=== PATIENT | male | born 1980 | race Two or more races ===

== ENCOUNTER 2020-08-23 13:37 | Outpatient (REF) | payer OTHER, SELFPAY ==
[2020-08-24 22:14] LABS: Rubella IgG Antibody 2.53 Index
[2020-08-25 08:01] LABS: ~Hepatitis B Surface Antibody REACTIVE (Nonreactive)
== END 2020-08-23 13:38 | disposition home or self-care (01) ==
LOC: HO.HMGCLDS 13:37
PROVIDERS: PCP Nurse Practitioner Family; Visit Provider Preventive Medicine Occupational Medicine
DX: Z01.84 Encounter for antibody response examination (principal); Z11.59 Encounter for screening for other viral diseases
CPT/HCPCS: 86706; 86735; 86762; 86765; 86787

== ENCOUNTER 2020-08-30 09:07 | Outpatient (REF) | payer OTHER, SELFPAY ==
[2020-09-01 20:57] LABS: TS Negative Control Passed; TS Panel A 0; TS Panel B 0; TS Positive Control Passed; TSpotTB Negative (SeeBelow)
== END 2020-08-30 09:08 | disposition home or self-care (01) ==
LOC: HO.HMGCLDS 09:07
PROVIDERS: Visit Provider Nurse Practitioner Family
DX: Z11.1 Encounter for screening for respiratory tuberculosis (principal)
CPT/HCPCS: 86481

== ENCOUNTER 2020-12-27 11:05 | Outpatient (REF) | payer OTHER, SELFPAY ==
--- NOTE | ~2020-12-27 | XR_ITS ---
EXAMINATION: XR SHOULDER, RIGHT CLINICAL INFORMATION: Right shoulder pain. COMPARISON: None TECHNIQUE: AP external rotation, Grashey, scapular Y, and axillary views of the right shoulder. FINDINGS: The bones and soft tissues are normal. No fracture. Glenohumeral and acromioclavicular alignment is anatomic with normal joint space. No abnormal soft tissue calcifications. XR/XR shoulder RT min 2V IMPRESSION: Unremarkable examination.
[2020-12-27 14:48] LABS: Alanine Aminotransferase 29 U/L (0-40); Albumin Level 4.4 g/dL (3.5-5.0); Alkaline Phosphatase 76 U/L (39-117); Anion Gap 13 (12-20); Aspartate Amino Transferase 26 U/L (5-37); Bilirubin Total 0.7 mg/dL (0.0-1.0); Blood Urea Nitrogen 13 mg/dL (9-16); Carbon Dioxide 27 mmol/L (22-29); Chloride 105 mmol/L (96-108); Cholesterol 148 mg/dL; Estimated Glomerular Filt Rate > 60; Glucose Fasting 94 mg/dL (60-99); HDL Cholesterol 35 mg/dL; LDL Cholesterol Calculated 98 mg/dl; Potassium 4.5 mmol/L (3.3-5.1); Sodium 140 mmol/L (135-145); Total Protein 7.3 g/dL (6.5-8.0); Triglycerides 77 mg/dL
[2020-12-30 13:56] LABS: HCV Log PCR 2.27 Log IU/mL (NOT DETECTED); HepC Viral Load 185 IU/mL (NOT DETECTED)
== END 2020-12-27 11:06 | disposition home or self-care (01) ==
LOC: HO.HMGCLDS 11:05
PROVIDERS: PCP Nurse Practitioner Family; Visit Provider Nurse Practitioner Family
DX: Z00.00 Encounter for general adult medical examination without abnormal findings (principal); R76.8 Other specified abnormal immunological findings in serum; M25.511 Pain in right shoulder
CPT/HCPCS: 36415; 73030; 80053; 80061; 84443; 87522

== ENCOUNTER 2021-01-06 10:00 | Outpatient (RCR) | payer OTHER, SELFPAY ==
--- NOTE | 2020-12-27 11:04 | MHC.PT.EP ---
[facility] [place] Office [place] Office [place] Office [address] Grace Rivas [address] [phone] F: [phone] F: [phone] F: [phone] F: [phone] Physical Therapy Plan of Care Date of Evaluation: 12/27/20 Date of Surgery: Diagnosis: PAIN IN RIGHT SHOULDER Assessment: 40 YO MALE REF TO PT FOR Rt SHOULDER PAIN GRAD INCR SINE EXACERB 07/2020- HE IS HAVING AN XRAY AFTER PT EVAL TODAY- Pt IS RIGHT HAND DOMINANT- HE HAS DECR POSTURAL AWARENESS W (+) Rt STERNOCLAVIC Jt DISRUPTION, (+) SOFT TISSUE IRRIT IN Rt UPPER TRAP/ SUPRA/ POST RC; SHOULDER END RANGE PAIN, AND WEAKNESS IN ER/ EXT/ABD. FUNCTIONALLY HE IS LIMITED W PHYS DEMANDING ADLs (>10 LBS), SL Rt, GETTING COMFORTABLE FOR SLEEP, AND REACHING OVERHEAD. HE HAD A (+) NEER'S SIGN Rt AND EMPTY CAN Rt. GOOD PT CANDIDATE. Frequency and Duration: The patient will be seen 2x WK x 5 WKS Short Term Goals: DECR Pt'S Rt SH PAIN TO 2-3/10 IN 2 WKS Pt DEMON INDEP SELF CORRECT POSTURE TO REDUCE STRESS ON Rt SH/ LB IN 2 WKS [facility] Goals: Pt INDEP W HEP FOR STRENGTH/ STAB/ PROPRIO AND SELF-SX MGMT TECHN FOR Rt SH IN 5 WKS Pt RESUME REG ADLs EVIDENT IN IMPROVED SPADI SCORE BY AT LEAST 10 POINTS (81/130 AT EVAL) IN 5 WKS Treatment Plan: Modalities to reduce pain, spasms and effusion. Manual therapy to restore motion and function. Therapeutic exercise to improve strength and flexibility. Neuromuscular re-education for posture and balance. Therapeutic activities to return to functional activities of daily living. Electronically signed by: Miri Bellamy,PT Please sign and return to therapist. Thank you for your referral.
--- NOTE | 2021-01-19 10:45 | MHC.PT.DC ---
[facility] [place] Office [place] Office [place] Office [address] Grace Rivas [address] [phone] F: [phone] F: [phone] F: [phone] F: [phone] Physical Therapy Discharge Report Diagnosis: PAIN IN RIGHT SHOULDER Date of Surgery: Date of Evaluation: 12/27/20 Date of Discharge: 01/19/21 Treatments to Date: 3 Cancellations to Date: 0 No Shows to Date: 2 Discharge Status: Improved Function Independent with HEP Patient Elected to Stop Discharge Summary: Pt WAS PROGRESSING WELL IN PT TO ADDRESS HIS RIGHT SHOULDER PAIN- WE ADDRESSED SOFT TISSUE IRRIT IN HIS RC/ SHOULDER COMPLEX/ Rt PECT/ MID/LOWER TRAP/ LAT WITH (+) IMPACT AND EDUC Pt RE SELF-SX MGMT TECHN. HE HAS IMPROVED SELF CORRECT OF POSTURE/ BODY MECH AND FORM W THER EXER AND ADLs - HE APPEARS INDEP AND COMPLIANT W HEP. HIS SUBJECTIVE PAIN HAS DECREASED. HE NO-SHOWED HIS LAST 2 TREATMENTS DESPITE REMINDER PHONE CALLS. Electronically signed by: Miri Bellamy,PT Please sign and return to therapist. Thank you for your referral.
== END 2021-01-19 10:47 | disposition other institution (70) ==
LOC: HO.PTCHIC 10:00
PROVIDERS: PCP Nurse Practitioner Family; Visit Provider Nurse Practitioner Family
DX: M25.511 Pain in right shoulder (principal)
CPT/HCPCS: 97110; 97140; 97162

== ENCOUNTER → 2021-01-24 09:45 | Outpatient (BNVA) | payer OTHER, SELFPAY | PROVIDERS: PCP Nurse Practitioner Family; Visit Provider Internal Medicine | DX: B19.20 Unspecified viral hepatitis C without hepatic coma (principal); F17.200 Nicotine dependence, unspecified, uncomplicated; Z71.6 Tobacco abuse counseling | CPT/HCPCS: 99212 ==

== ENCOUNTER 2021-03-07 09:57 | Outpatient (REF) | payer OTHER, SELFPAY ==
[2021-03-07 11:49] LABS: Alanine Aminotransferase 50 U/L (0-40); Albumin Level 4.6 g/dL (3.5-5.0); Alkaline Phosphatase 86 U/L (39-117); Aspartate Amino Transferase 35 U/L (5-37); Bilirubin Direct 0.3 mg/dL (0.0-0.5); Bilirubin Total 0.7 mg/dL (0.0-1.0); Total Protein 7.3 g/dL (6.5-8.0)
[2021-03-07 12:07] LABS: HIV AB/AG Nonreactive (Nonreactive); HIV Num 1 0.06 S/CO (0.00-0.99)
[2021-03-08 19:47] LABS: HCV Log PCR 3.77 Log IU/mL (NOT DETECTED); HepC Viral Load 5940 IU/mL (NOT DETECTED)
[2021-03-16 18:06] LABS: FIB-ALT 48 U/L (9-46); FIB-Alpha-2-Macroglobulin 169 mg/dL (106-279); FIB-Apolipoprotein A1 171 mg/dL (94-176); FIB-GGT 20 U/L (3-95); FIB-Haptoglobin 122 mg/dL (43-212); FIB-Total Bilirubin 0.6 mg/dL (0.2-1.2); Liver Fibrosis Score 0.11; Liver Fibrosis Stage F0; Nec Inflam Act Grade A0-A1; Nec Inflam Act Score 0.22
== END 2021-03-07 09:58 | disposition home or self-care (01) ==
LOC: HO.LAB 09:57
PROVIDERS: PCP Nurse Practitioner Family; Visit Provider Internal Medicine
DX: Z11.4 Encounter for screening for human immunodeficiency virus [HIV] (principal); R76.8 Other specified abnormal immunological findings in serum
CPT/HCPCS: 36415; 80076; 81596; 87389; 87522; 87902; 99212

== ENCOUNTER 2021-03-16 08:57 | Outpatient (REF) | payer OTHER, SELFPAY ==
--- NOTE | ~2021-03-16 | XR_ITS ---
EXAMINATION: XR FOOT, LEFT CLINICAL INFORMATION: Cellulitis left to COMPARISON: None TECHNIQUE: AP, lateral, and oblique views of the left foot. FINDINGS: The bones and soft tissues are normal. No fracture. Alignment is anatomic. Joint spaces are maintained. XR/XR foot LT min 3V IMPRESSION: Normal left foot.
== END 2021-03-16 08:58 | disposition home or self-care (01) ==
LOC: HO.HMGCX 08:57
PROVIDERS: PCP Nurse Practitioner Family; Visit Provider Nurse Practitioner Family
DX: L03.032 Cellulitis of left toe (principal)
CPT/HCPCS: 73630

== ENCOUNTER → 2021-05-16 11:29 | Outpatient (BNVA) | payer OTHER, SELFPAY | PROVIDERS: PCP Nurse Practitioner Family; Visit Provider Internal Medicine | DX: B19.20 Unspecified viral hepatitis C without hepatic coma (principal); R76.8 Other specified abnormal immunological findings in serum | CPT/HCPCS: 99212 ==

== ENCOUNTER 2021-12-14 14:14 | Outpatient (REF) | payer OTHER, SELFPAY ==
[2021-12-14 15:24] LABS: Alanine Aminotransferase 42 U/L (0-40); Albumin Level 4.5 g/dL (3.5-5.0); Alkaline Phosphatase 78 U/L (39-117); Aspartate Amino Transferase 32 U/L (5-37); Bilirubin Direct 0.2 mg/dL (0.0-0.5); Bilirubin Total 0.3 mg/dL (0.0-1.0); Total Protein 7.3 g/dL (6.5-8.0)
[2021-12-16 11:46] LABS: HCV Log PCR <1.18 NOT DETECTED Log IU/mL (NOT DETECTED); HepC Viral Load <15 NOT DETECTED IU/mL (NOT DETECTED)
== END 2021-12-14 14:15 | disposition home or self-care (01) ==
LOC: HO.LAB 14:14
PROVIDERS: Visit Provider Internal Medicine
DX: R76.8 Other specified abnormal immunological findings in serum (principal)
CPT/HCPCS: 36415; 80076; 87522; 99212

== ENCOUNTER 2022-01-09 14:00 | Outpatient (RCR) | payer OTHER, SELFPAY ==
--- NOTE | 2021-12-23 08:49 | MHC.PT.EP ---
[facility] [place] Office [place] Office [place] Office [address] Grace Rivas [address] [phone] F: [phone] F: [phone] F: [phone] F: [phone] Physical Therapy Plan of Care Date of Evaluation: Date of Surgery: n/a Diagnosis: low back pain Assessment: Patient is a 41 year old male presenting to PT with complaints of pain in his low back. 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 He presents today with impairments in pain, lumbar ROM, numbness and tingling, hip strength, core strength, posture, and quad muscle length. 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 Clinical presentation today is most consistent with signs and sx associated with low back pain with radicular sx and likely extension preference and pt will benefit from skilled PT to address the following problems and impairments noted upon evaluation: pain, lumbar ROM, numbness and tingling, hip strength, core strength, posture, and quad muscle length. These problems limit the patient with the following functional activities: bending, lifting, ADLs, work. The prescribed treatment plan of care is medically necessary. Co-morbidities of per pt had surgery on lungs from sepsis?, Hepatitis C antibody positive in blood were identified and taken into considerations of plan of care. Pt was educated on HEP, role of PT, prognosis, POC, lumbar anatomy. Frequency and Duration: The patient will be seen 2 x week x 4 weeks Short Term Goals: Pt will demonstrate centralization of neuro sx in 2 weeks. Pt will demonstrate improved hip strength by 1/3 MMT for improved lumbopelvic stability in 2 weeks. Pt will demonstrate PPT with good TA recruitment in 2 weeks for improved core strength. Pt will demonstrate min to mod limitation in prone quad test in 2 weeks. Pt will demonstrate improved postural awareness by sitting with biomechanically correct posture without cues throughout session to improve overall postural function in 2 weeks. Mortgage Loan Assistant Goals: Pt will demonstrate improved Everett score to <10% disability in 4 weeks for improved overall functional mobility. Pt will demonstrate ability to work with min to no pain at the end of the day in 4 weeks for return to PLOF. Pt will demonstrate good mechanics with bending and lifting in 4 weeks to prevent re-injury. Treatment Plan: Modalities to reduce pain, spasms and effusion. Manual therapy to restore motion and function. Therapeutic exercise to improve strength and flexibility. Neuromuscular re-education for posture and balance. Therapeutic activities to return to functional activities of daily living. Electronically signed by: Lian Moise, PT, DPT, ATC Please sign and return to therapist. Thank you for your referral.
--- NOTE | 2022-01-20 11:20 | MHC.PT.DC ---
[facility] [place] Office [place] Office [place] Office [address] [phone] F: [phone] F: [phone] F: [phone] F: [phone] Physical Therapy Discharge Report Diagnosis: low back pain Date of Surgery: n/a Date of Evaluation: 12/23/21 Date of Discharge: 01/20/22 Treatments to Date: 3 Cancellations to Date: 1 No Shows to Date: 2 Discharge Status: Visit Non-compliance Discharge Summary: Pt has failed to comply with [facility] attendance policy and no showed his last 2 scheduled appointments. Pt status unknown at this time. Electronically signed by: Lian Moise, PT, DPT, ATC Please sign and return to therapist. Thank you for your referral.
== END 2022-01-20 11:20 | disposition home or self-care (01) ==
LOC: HO.PTCHIC 14:00
PROVIDERS: PCP Nurse Practitioner Family; Visit Provider Nurse Practitioner Family
DX: M54.50 Low back pain, unspecified (principal)
CPT/HCPCS: 97110; 97161

== ENCOUNTER 2022-02-27 19:29 | Outpatient (REF) | payer OTHER, SELFPAY ==
--- NOTE | ~2022-02-27 | MR_ITS ---
EXAMINATION: MR LUMBAR SPINE WITHOUT CONTRAST CLINICAL INFORMATION: Lower back pain. COMPARISON: None available. TECHNIQUE: MRI of the lumbar spine was obtained using routine sequences without contrast. FINDINGS: Mild degenerative retrolistheses of L3 on L4 and L4 on L5. Otherwise, normal anatomic alignment. There is generalized decreased marrow signal throughout. Lipid rich hemangioma within the L2 vertebral body. Advanced degenerative disc disease at L5-S1. Moderate degenerative disc disease at L4-L5. Mild degenerative disc disease at all additional lumbar levels. Associated mixed Modic type discogenic endplate changes including minimal Modic type I discogenic edema at L4-L5 and L5-S1. No additional suspicious marrow edema. The conus medullaris terminates at the level of L1-L2. The distal spinal cord is normal in appearance. No significant abnormalities of the paraspinal musculature. Limited evaluation of the intra-abdominal structures without significant abnormalities. The abdominal aorta is of normal contour and caliber. AXIAL SPINAL LEVELS: L1-L2: Shallow diffuse disc bulge. There is mild bilateral facet joint arthropathy. There is no neural foraminal stenosis. There is no spinal canal stenosis. L2-L3: Shallow diffuse disc bulge. There is mild bilateral facet joint arthropathy. There is no neural foraminal stenosis. There is no spinal canal stenosis. L3-L4: Mild diffuse disc bulge. There is moderate bilateral facet joint arthropathy. There is mild bilateral neural foraminal stenosis. There is narrowing of the subarticular zones with no overt spinal canal stenosis centrally. L4-L5: Moderate diffuse disc bulge with superimposed small central/right subarticular disc extrusion with slight inferior migration. There is moderate bilateral facet joint arthropathy. There is moderate bilateral neural foraminal stenosis. There is stenosis of the right worse than left subarticular zones with mild spinal canal stenosis centrally. L5-S1: Moderate diffuse disc bulge with superimposed central disc protrusion. There is moderate bilateral facet joint arthropathy. There is moderate bilateral neural foraminal stenosis. There is no spinal canal stenosis. MR/MR lumbar spine wo con IMPRESSION: 1. Moderate multilevel degenerative spondyloarthropathy of the lumbar spine as described in detail above. Most notably, there is mild spinal canal stenosis at L4-L5. Narrowing/stenoses of the subarticular zones at L3-L4 and L4-L5 (worst on the right at L4-L5). Moderate neural foraminal stenoses at L4-L5 and L5-S1. 2. Diffusely decreased marrow signal throughout. These changes are nonspecific but may be seen in the setting of nonspecific metabolic derangement or hematopoietic/lymphoproliferative disorders (including anemia).
== END 2022-02-27 19:30 | disposition home or self-care (01) ==
LOC: HO.MRI 19:29
PROVIDERS: Visit Provider Nurse Practitioner Family
DX: M54.50 Low back pain, unspecified (principal); M79.605 Pain in left leg; R29.898 Other symptoms and signs involving the musculoskeletal system
CPT/HCPCS: 72148

== ENCOUNTER 2022-03-05 12:45 | Emergency (ER) | payer OTHER, SELFPAY ==
[2022-03-05 13:00] VITALS: BP 151/97; PULSE 75; RESP 17; TEMP 36.8; O2SAT 99; BMI 30.6
--- NOTE | 2022-03-05 14:56 | ED_ITS ---
HPI - Extremity Problem General Chief complaint: Extremity Problem Stated complaint: L leg numbness Time Seen by Provider: 03/05/22 13:58 Source: patient Mode of arrival: ambulatory History of Present Illness HPI Narrative: 42-year-old male with a past medical history of substance abuse (in recovery) presenting to the ED complaining of acute on chronic left-sided low back pain radiating down left buttock into left lower extremity. Admits had MRI on Sunday, waiting for follow-up appointment with PCP. States has been taking steroids, anti-inflammatories and tramadol with little relief. Reports numbness to distal left lower extremity. States symptoms causing him to trip over his own feet. Denies recent falls, fever, weakness, urinary incontinence/retention. Admits he is out of his medications Onset (ago): week(s) Related Data Home Medications Medication Instructions Recorded Confirmed bupropion HCl 150 mg 24 hr tablet, 150 mg PO QAM 08/25/20 02/18/22 extended release lisdexamfetamine 70 mg capsule 70 mg PO QAM 08/25/20 02/18/22 gabapentin 100 mg capsule 100 mg PO TID 12/06/21 02/18/22 gabapentin 400 mg capsule 400 mg PO TID 12/06/21 02/18/22 quetiapine 100 mg tablet 100 mg PO BEDTIME 12/06/21 02/18/22 Previous Rx's Medication Instructions Recorded pantoprazole 20 mg tablet,delayed 20 mg PO DAILY 30 days #30 tabs 01/16/22 release dexamethasone 4 mg tablet 4 mg PO DAILY #5 tabs 02/09/22 (Decadron) meloxicam 15 mg tablet 15 mg PO DAILY PRN pain 30 days 02/14/22 #30 tabs prednisone 50 mg tablet 50 mg PO DAILY 6 days #6 tabs 02/16/22 ketoconazole 2 % topical cream 1 appl topical BID 20 days #60 02/18/22 grams tramadol 50 mg tablet 100 mg PO BID 3 days #12 tabs 02/24/22 cyclobenzaprine 5 mg tablet 5 mg PO Q8H PRN pain (scale score 03/05/22 7-10) 5 days #14 tabs lidocaine 5 % topical patch 1 patch topical DAILY PRN pain #30 03/05/22 (Lidoderm) ea naproxen 500 mg tablet 500 mg PO BID PRN pain 10 days #20 03/05/22 tabs tramadol 50 mg tablet 50 mg PO Q8H PRN pain, severe #9 03/05/22 tabs Allergies Allergy/AdvReac Type Severity Reaction Status Date / Time No Known Allergies Allergy Verified 03/05/22 13:00 [No Known Allergies*] Review of Systems Review of Systems: Constitutional: No Weight loss, No Fever, No Chills ENT/Mouth: No Ear Pain, No Nasal Congestion, No Sinus Pain, No Hoarseness, No sore throat, No Rhinorrhea, No Swallowing Difficulty Cardiovascular: No Chest Pain, No SOB Respiratory: No Cough, No Sputum, No Wheezing Gastrointestinal: No Nausea, No Vomiting, No Diarrhea, No Constipation, No Abdominal pain Genitourinary: No Dysuria, No Urinary Frequency, No Hematuria, No Urinary Incontinence/retention, No Urgency, No Flank Pain Musculoskeletal: + joint pain, No Myalgias, No Joint Swelling Skin: No Skin Lesions, No rash Neuro: No Weakness, + Numbness, No Paresthesias Yes all other systems are reviewed and are negative [facility] Past Medical History Attestation statement: The following information was validated with the patient. Medical History ADD (attention deficit disorder) Hepatitis C antibody positive in blood Lower back pain Suicidal behavior with attempted self-injury Surgical History History of appendectomy Family History Family History Father No problems noted. Mother No problems noted. Social History Social History Housing: House Patient Tobacco Use Status: Current everyday Tobacco user Cigarettes Per Day: 5 Years Smoked: 25 e-Cigarette/Vaping Use: Currently Using Second Hand Smoke Exposure: No Advance Directives: No Advance Directives Information Provided: No service: No Current occupational status: employed Current occupation: [employer] Current occupational exposures/hazards: No Physical Exam Vital Signs: Vital Signs: Last Vital Signs Temp 98.3 F 03/05/22 13:00 Pulse 75 03/05/22 13:00 Resp 17 03/05/22 13:00 BP 151/97 H 03/05/22 13:00 Pulse Ox 99 03/05/22 13:00 O2 Del Method 03/05/22 13:00 BMI result Body Mass Index 30.6 Const: General: cooperative, healthy appearing and no acute distress Orientation/consciousness: patient oriented x3 Limitations: no limitations HEENT: Head: Yes normal to inspection and Yes atraumatic Ears: hearing grossly normal bilaterally General nose exam: Normal external nose present Face and sinus: Yes normal facial exam Eyes: General: appearance normal, both eyes and all related structures EOM: EOMs intact bilaterally Neck: Neck: Yes normal visual inspection and Yes no meningeal signs Resp: Effort & Inspection: normal respiratory effort and no respiratory distress Auscultation: clear to auscultation bilaterally Cardio: Rate: regular rate Heart sounds: S1 normal heart sound present and S2 normal heart sound present : General: Yes no CVA tenderness Back/Spine/Pelvis: Other: No midline thoracic/lumbar spinous tenderness/step-off or deformity. + mild swelling/spasming noted to lumbar region + left lower lumbar MSK tenderness Back: no CVA tenderness Skin: Rashes: no rashes Wounds: no wounds Neuro: Other: Reported decreased/different sensation to left lower leg, sensation is intact to light touch General: patient oriented x3, gait normal, tone normal, moves all extremities, no meningeal signs and no focal motor deficits Gait exam (Neuro): Normal gait present Motor exam (neuro): 5/5 motor strength present throughout Sensory Exam: Abnormal lower extremity sensory exam Extrem: General: Yes normal to inspection MDM - Extremity (Nontraumatic) MDM Narrative Medical decision making narrative: 42-year-old male with a past medical history of substance abuse (in recovery) presenting to the ED complaining of acute on chronic left-sided low back pain radiating down left buttock into left lower extremity. On exam vital signs stable, NAD, physical exam as above, no midline spinous tenderness, no red flag symptoms, no saddle anesthesia. Decreased sensation to distal LLE. Concern for disc herniation vs MSK pain/strain. Low concern for epidural abscess as patient is in recovery, or cauda equina MRI from 02/27/2022 showing multilevel degenerative spondyloarthropathy and mild canal stenosis and moderate neural foraminal stenosis Results were discussed with patient, patient was provided with printed out of radiologist's read. Discussed he needs to follow-up with Neurosurgery Will re-prescribe tramadol, patient does not want any stronger opiates due to being in recovery Discussed worrisome signs and symptoms and strict return precautions are need close follow-up with Neurosurgery/PCP, he verbalized understanding and feel safe for discharge home Medical Records Attestation: I reviewed the patient's medical records. Lab Data Attestation: I reviewed the patient's lab results. Discharge Plan Discharge Clinical Impression: Low back pain radiating to left leg, Acute lumbar radiculopathy Patient Disposition: Home, Self-Care Instructions: Lumbar Radiculopathy (ED) Additional Instructions: Your pain is likely musculoskeletal Flexeril is a muscle relaxer, take at night as it makes you drowsy, do not drive, drink alcohol, or operate machinery while taking it Naproxen as an anti-inflammatory / pain medication, take with food Lidoderm patches are numbing patches, apply to painful area In addition take Tylenol at home Tramadol is an opiate pain medication, take only for next 3 days for severe pain If symptoms persist or worsen, pain becomes unbearable, you developed urinary retention or incontinence, or weakness return to the ED Prescriptions: New tramadol 50 mg tablet 50 mg PO Q8H PRN (Reason: pain, severe) Qty: 9 0RF lidocaine [Lidoderm] 5 % adhesive patch,medicated 1 patch topical DAILY MDD remove after 12 hours PRN (Reason: pain) Qty: 30 0RF Rx Instructions: leave on most painful area for up to 12 hrs naproxen 500 mg tablet 500 mg PO BID PRN (Reason: pain) 10 Days Qty: 20 0RF cyclobenzaprine 5 mg tablet 5 mg PO Q8H PRN (Reason: pain (scale score 7-10)) 5 Days Qty: 14 0RF No Action pantoprazole 20 mg tablet,delayed release (DR/EC) 20 mg PO DAILY 30 Days Qty: 30 0RF meloxicam 15 mg tablet 15 mg PO DAILY PRN (Reason: pain) 30 Days Qty: 30 0RF Rx Instructions: its to be used after dexamethasone is finished prednisone 50 mg tablet 50 mg PO DAILY 6 Days Qty: 6 0RF tramadol 50 mg tablet 100 mg PO BID 3 Days Qty: 12 0RF gabapentin 100 mg capsule 100 mg PO TID gabapentin 400 mg capsule 400 mg PO TID quetiapine 100 mg tablet 100 mg PO BEDTIME bupropion HCl 150 mg tablet extended release 24 hr 150 mg PO QAM Vyvanse 70 mg capsule 70 mg PO QAM dexamethasone [Decadron] 4 mg tablet 4 mg PO DAILY Qty: 5 0RF ketoconazole 2 % cream 1 appl topical BID 20 Days Qty: 60 0RF Referrals: Velvet Ortiz MD [Physician] -
== END 2022-03-05 15:18 | disposition home or self-care (01) ==
PROVIDERS: Emergency Provider Emergency Medicine Emergency Medical Services; PCP Nurse Practitioner Family
DX: M54.16 Radiculopathy, lumbar region (principal); M54.50 Low back pain, unspecified; R20.0 Anesthesia of skin; M79.662 Pain in left lower leg; F17.210 Nicotine dependence, cigarettes, uncomplicated; Z71.6 Tobacco abuse counseling
CPT/HCPCS: 99283

== ENCOUNTER 2022-03-10 12:00 | Outpatient (REF) | payer OTHER, SELFPAY ==
[2022-03-10 14:28] LABS: MANUAL DIFF FLAG NO
[2022-03-10 14:31] LABS: Basophils Percent Auto 0.3 % (0-2); Eosinophils Absolute Auto 0.1 X10*3/uL (0.0-0.4); Eosinophils Percent Auto 1.9 % (0-4); Hematocrit 43.2 % (42.0-52.0); Hemoglobin 14.3 g/dl (14.0-18.0); Imm Gran Abs Auto 0.02 X10*3/uL (0.00-0.03); Imm Gran Pct Auto 0.3 % (0.0-0.4); Lymphocytes Absolute Auto 2.2 X10*3/uL (1.2-4.9); Lymphocytes Percent Auto 35.7 % (20-40); Mean Corpuscular HGB Conc 33.1 g/dl (31.0-36.0); Mean Corpuscular Hemoglobin 28.3 pg (27.0-33.0); Mean Corpuscular Volume 85.4 fL (80.0-98.0); Mean Platelet Volume 11.7 fL (9.4-12.4); Monocytes Absolute Auto 0.5 X10*3/uL (0.1-1.2); Monocytes Percent Auto 8.7 % (2-11); Neutrophils Absolute Auto 3.3 x10*3/uL (2.0-8.3); Neutrophils Percent Auto 53.1 % (45-73); Platelet Count 247 X10*3/uL (160-400); Red Blood Count 5.06 X10*6/uL (4.60-5.80); Red Cell Distribution Width 12.8 % (11.0-16.0); White Blood Count 6.2 X10*3/uL (4.8-10.8)
[2022-03-10 14:43] LABS: Alanine Aminotransferase 25 U/L (0-40); Albumin Level 4.3 g/dL (3.5-5.0); Alkaline Phosphatase 75 U/L (39-117); Anion Gap 11 (12-20); Aspartate Amino Transferase 23 U/L (5-37); Bilirubin Total 0.6 mg/dL (0.0-1.0); Blood Urea Nitrogen 14 mg/dL (9-16); Calcium 9.1 mg/dL (8.4-10.2); Carbon Dioxide 25 mmol/L (22-29); Chloride 107 mmol/L (96-108); Estimated Glomerular Filt Rate > 60; Glucose Random 107 mg/dL (60-115); Potassium 4.2 mmol/L (3.3-5.1); Sodium 139 mmol/L (135-145)
[2022-03-10 15:04] LABS: Ferritin 97 ng/mL (20-250)
[2022-03-10 15:16] LABS: Folate 12.5 ng/mL (> or = 4.0); Vitamin B12 636 pg/mL (200-900)
[2022-03-11 21:12] LABS: Lyme Abs Screen <0.90 index
[2022-03-13 14:37] LABS: Anti Nuclear Antibody Screen NEGATIVE (NEGATIVE)
== END 2022-03-10 12:01 | disposition home or self-care (01) ==
LOC: HO.HMGCLDS 12:00
PROVIDERS: PCP Nurse Practitioner Family; Visit Provider Nurse Practitioner Family
DX: R53.83 Other fatigue (principal)
CPT/HCPCS: 36415; 80053; 82607; 82728; 82746; 85025; 86038; 86039; 86617; 86618

== ENCOUNTER 2022-08-14 12:14 | Outpatient (REF) | payer OTHER, SELFPAY ==
[2022-08-14 14:13] LABS: Amphetamine Screen Urine POSITIVE (Not Detect); Barbiturates, Urine Not Detected (Not Detect); Benzodiazepines Screen Urine Not Detected (Not Detect); Cannabinoid Screen Urine Not Detected (Not Detect); Cocaine Screen Urine Not Detected (Not Detect); Fentanyl, urine Not Detected (Not Detect); Opiate Screen Urine Not Detected (Not Detect); Phencyclidine Screen Urine Not Detected (Not Detect)
[2022-08-21 10:34] LABS: Codeine, Ur NEGATIVE; Hydrocodone, Ur NEGATIVE; Hydromorphone, Ur NEGATIVE; Morphine, Ur NEGATIVE; Norhydrocodone, Ur NEGATIVE; Noroxycodone, Ur NEGATIVE; Oxycodone, Ur NEGATIVE; Oxymorphone, Ur NEGATIVE
== END 2022-08-14 12:15 | disposition home or self-care (01) ==
LOC: HO.HMGCLDS 12:14
PROVIDERS: PCP Nurse Practitioner Family; Visit Provider Nurse Practitioner Family
DX: Z02.83 Encounter for blood-alcohol and blood-drug test (principal)
CPT/HCPCS: 80307; 80364; 80365

== ENCOUNTER 2022-10-20 13:37 | Outpatient (REF) | payer OTHER, SELFPAY ==
[2022-10-20 16:54] LABS: Amphetamine Screen Urine POSITIVE (Not Detect); Barbiturates, Urine Not Detected (Not Detect); Benzodiazepines Screen Urine Not Detected (Not Detect); Cannabinoid Screen Urine Not Detected (Not Detect); Cocaine Screen Urine Not Detected (Not Detect); Fentanyl, urine Not Detected (Not Detect); Opiate Screen Urine Not Detected (Not Detect); Phencyclidine Screen Urine Not Detected (Not Detect)
== END 2022-10-20 13:38 | disposition home or self-care (01) ==
LOC: HO.HMGCLDS 13:37
PROVIDERS: PCP Nurse Practitioner Family; Visit Provider Nurse Practitioner Family
DX: Z02.83 Encounter for blood-alcohol and blood-drug test (principal)
CPT/HCPCS: 80307

== ENCOUNTER 2023-01-26 13:01 | Outpatient (REF) | payer OTHER, SELFPAY ==
[2023-01-26 14:11] LABS: Amphetamine Screen Urine POSITIVE (Not Detect); Barbiturates, Urine Not Detected (Not Detect); Benzodiazepines Screen Urine Not Detected (Not Detect); Cannabinoid Screen Urine Not Detected (Not Detect); Cocaine Screen Urine Not Detected (Not Detect); Fentanyl, urine Not Detected (Not Detect); Opiate Screen Urine Not Detected (Not Detect); Phencyclidine Screen Urine Not Detected (Not Detect)
== END 2023-01-26 13:02 | disposition home or self-care (01) ==
LOC: HO.HMGCLDS 13:01
PROVIDERS: PCP Nurse Practitioner Family; Visit Provider Nurse Practitioner Family
DX: Z02.83 Encounter for blood-alcohol and blood-drug test (principal)
CPT/HCPCS: 80307

== ENCOUNTER 2024-10-15 13:39 | Outpatient (AMB) | payer OTHER, SELFPAY ==
[2024-10-15 13:45] VITALS: BP 128/80; PULSE 80; RESP 12; TEMP 36.6; O2SAT 98; BMI 33.9
--- NOTE | 2024-10-15 13:45 | MHC.PC.OV ---
Vital Signs 10/15/24 13:45 Height 6 ft 3 in Weight 271 lb BMI 33.9 BP 128/80 Blood Pressure Location Lt brachial Position Sitting Respiration 12 Pulse 80 Pulse Source Pulse Oximeter Temp 97.8 F Temp Source Oral Pulse Oximetry (%) 98 Intake Visit Reasons: PE Intake Note: pt is here for PE Emergency Room Clinician Required: No Allergies No Known Allergies [No Known Allergies*] Allergy (Verified 10/15/24 13:45) Medication List - Last Reconciled 10/15/24 by TAYLOR Andersen- bupropion HCl XL 300 mg PO DAILY gabapentin 800 mg PO BID pantoprazole 20 mg PO DAILY 30 days quetiapine 100 mg PO BEDTIME sertraline (Zoloft) 100 mg PO DAILY Tobacco use date assessed: 10/15/24 Dental Screening Dental Screen Date: 10/15/24 Did you have a dental visit in the last 12 months?: Yes Did you have a dental problem in the last 6 months where you did not have access to dental care?: No Was dental information given to patient?: Patient has dentist HPI PE HPI Details History of Present Illness The patient is a 44-year-old male presenting with Attention Deficit Hyperactivity Disorder (ADHD) management. Previously diagnosed with ADHD, the patient was being effectively managed with Vyvanse, which he found to be beneficial. However, upon entering a program outside of his current region, he lost access to his psychiatrist. Since then, he has been seeking psychiatric care to resume medication. Additionally, the patient had a relapse involving unspecified drugs in May but reports sobriety since that time. 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 Health Maintenance - Discussed potential reinstatement of ADHD medication regimen (Vyvanse) contingent on psychiatric evaluation. - Patient employment contributes to structured daily activities, impacting overall health positively. 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 - Substance Use: Previous drug relapse in May; reports being sober since. Review of Systems Physical Exam General: Cooperative, healthy appearing, comfortable, no acute distress and well developed Orientation: Patient oriented x3 Limitations: No limitations Head: Normal to inspection Ears: Hearing grossly normal bilaterally Nose: Normal external nose present Face and sinus: Normal facial exam Eyes: Appearance normal, both eyes and all related structures Neck: Normal visual inspection and Yes full ROM Respiratory: Normal respiratory effort and able to speak in complete sentences. Clear to auscultation bilaterally Cardiovascular: Regular rate and rhythm. Normal S1 and S2 GI: Normal to inspection. Soft to palpation and nontender Skin: No rashes or lesions noted Neuro: Patient oriented x3 Extremities: Normal to inspection Results Plan - Evaluate options for psychiatric referral to manage ADHD, including potential reinstatement of Vyvanse. - Coordinate with the behavioral health team to locate an appropriate psychiatrist within the patient?s current region. Patient was informed and verbally consented to the use of an ambient scribe for clinic note documentation during this visit. Discussion Notes During the consultation, I discussed the patient?s need for a psychiatric evaluation to potentially reinstate Vyvanse for managing ADHD, given the prior effectiveness of this medication. I will be contacting our behavioral health team to facilitate a referral to a local psychiatrist. Future management and medication adjustments will be addressed in collaboration with psychiatric services. Employment at [employer] was noted as a positive social determinant, indicating stable routine and performance. Follow-ups will be scheduled accordingly once psychiatric care is established. Patient Instructions - Remain proactive in maintaining sobriety, as self-reported. - Expect contact regarding a psychiatric referral to discuss resuming ADHD medication. - Monitor functioning at work and report any challenges in concentration or task management. [facility] Medical History Heroin use Severe depression ETOH abuse Cocaine use disorder Stimulant use disorder Hepatitis C antibody positive in blood Lower back pain Suicidal behavior with attempted self-injury ADD (attention deficit disorder) Surgical History History of appendectomy Family History Father No problems noted. Mother No problems noted. Social History Housing: House Patient Tobacco Use Status: Current everyday Tobacco user Cigarettes Per Day: 5 Years Smoked: 25 e-Cigarette/Vaping Use: Currently Using Second Hand Smoke Exposure: No service: No Current occupational status: employed Current occupation: [employer] Current occupational exposures/hazards: No Cognitive needs: No Hearing needs: No Vision needs: No Questionnaire PHQ-9 Over the last 2 weeks, how often have you been bothered by any of the following problems? 1. Little interest or pleasure in doing things: more than half the days 2. Feeling down, depressed, or hopeless: more than half the days 3. Trouble falling or staying asleep, or sleeping too much: more than half the days 4. Feeling tired or having little energy: more than half the days 5. Poor appetite or overeating: not at all 6. Feeling bad about yourself - or that you are a failure or have let yourself or your family down: several days 7. Trouble concentrating on things, such as reading the newspaper or watching television: not at all 8. Moving or speaking so slowly that other people could have noticed. Or the opposite - being so fidgety or restless that you have been moving around a lot more than usual: more than half the days 9. Thoughts that you would be better off or of hurting yourself in some way: nearly every day Total score: 14 Depression Screening Interpretation: Positive (denies any si or HI, will reach out to our dept. ) Depression Screening Follow-up: Existing condition Depression Screening Done: Yes 81762 - PHQ-9 Billing: Yes Source: Developed by Drs. Harris Pennington, Kristina West, Brandon Escobedo and colleagues, with an educational triston from [employer]. Thrive Questionnaire Date Thrive assessed: 10/15/24 I am a: Patient What is your living situation today?: I have a steady place to live Within the past 12 months, did the food you bought not last and you didn't have the money to get more?: I choose not to answer this question Within the past 12 months, did you worry whether your food would run out before you got money to buy more?: Often true Do you have trouble paying for medicines?: I choose not to answer this question Do you have trouble getting transportation to medical appointments?: No Do you have trouble paying your heating and electricity bill?: Yes Do you have trouble taking care of your child, family member or friend?: I choose not to answer this question Do you have trouble with day-to-day activities such as bathing, preparing meals, shopping, managing finances, etc.?: No Are you currently unemployed and looking for a job?: No Are you interested in more education?: I choose not to answer this question Please select the resources that you would like help with: Utilities Currently or been in a relationship where the following occur: No concerns reported THRIVE Score: 2 AUDIT C Alcohol Use Questionnaire (AUDIT-C) 1. How often do you have a drink containing alcohol?: Never 3. How often do you have six or more drinks on one occasion?: Never Total Score: 0 Score Reviewed/Action Taken: Yes BERNARDO-7 AMB Questionnaire BERNARDO-7 Date BERNARDO - 7 assessed: 10/15/24 Feeling nervous, anxious, or on edge: 2 = More than half the days Not being able to stop or control worryin = Several days Worrying too much about different things: 2 = More than half the days Trouble relaxin = More than half the days Being so restless that it is hard to sit still: 2 = More than half the days Becoming easily annoyed or irritable: 2 = More than half the days Feeling afraid as if something awful might happen: 2 = More than half the days Total BERNARDO-7 score (0-4 normal; 5-9 mild; 10-14 moderate; 15-21 severe): 13 Source: Developed by Drs. Harris Pennington, Kristina West, Brandon Escobedo and colleagues, with an educational triston from [employer]. BERNARDO-7 Assessment Billing BERNARDO-7 Assessment Tool: BERNARDO-7 Assessment 83762 Physical exam (Primary Care) Vital Signs: Last Vital Signs Temp 97.8 F 10/15/24 13:45 Pulse 80 10/15/24 13:45 Resp 12 10/15/24 13:45 BP 128/80 10/15/24 13:45 Pulse Ox 98 10/15/24 13:45 BMI result Body Mass Index 33.9 Tobacco/Smoking Status: Tobacco use Status Tobacco use date assessed 10/15/24 10/15/24 13:46 Patient Tobacco Use Status Current everyday Tobacco 10/15/24 13:46 e-Cigarette/Vaping Use Currently Using 10/15/24 13:46 PHQ-9: PHQ-9 Score PHQ-9: Total score 14 10/15/24 13:46 Depression Screening Interpretation: Positive (denies any si or HI, will reach out to our dept. ) Depression Screening Follow-up: Existing condition Thrive Assessment: Date of Thrive Assessment Date Thrive assessed 10/15/24 10/15/24 13:46 Currently or been in a relationship where the following occur: No concerns reported Coding Level of Care Code Est Pt Prev Care 40-64y(21740) Diagnoses Physical exam Z00.[address] R68.82 Screening for prostate cancer Z12.5 Additional Codes BERNARDO-7 Assessment Billing - BERNARDO-7 Assessment Tool: BERNARDO-7 Assessment 35888 ([id number]) PHQ-9 - 74663 - PHQ-9 Billing: Yes ([id number]) Assessment & Plan Assessment & Plan (1) Physical exam: Code(s): Z00.00 - Encounter for general adult medical examination without abnormal findings Category: Medical (2) Decreased sex drive: Code(s): R68.82 - Decreased libido Category: Medical (3) Screening for prostate cancer: Code(s): Z12.5 - Encounter for screening for malignant neoplasm of prostate Category: Medical Plan test ordered Orders: Orders Complete Blood Count Auto Diff Today Z00.00 - Encounter for general adult medical examination without abnormal findings TSH reflex Free T4 Today Z00.00 - Encounter for general adult medical examination without abnormal findings UA CC w/rflx Micro + Cult Today Z00.00 - Encounter for general adult medical examination without abnormal findings Comprehensive [place]. Panel Fast Today Z00.00 - Encounter for general adult medical examination without abnormal findings Lipid Panel Today Z00.00 - Encounter for general adult medical examination without abnormal findings Testosterone, Free/Total Today R68.82 - Decreased libido Prostate Specific Antigen Scr Today Z12.5 - Encounter for screening for malignant neoplasm of prostate
--- OUTSIDE RECORDS SUMMARY | 2024-10-15 15:53 | XMS_ITS | Clinical Summary ---
[facility] [address] [place] [address] Care Team Providers Care Stone Chimney Mason Name Role Phone Unavailable Primary Care Provider Unavailabl e Social History Tobacco Use Types Packs/Day Years Used Date Smoking Tobacco: Never Assessed Sex and Gender Information Value Date Recorded Sex Assigned at Not on file Gender Identity Not on file Sexual Orientation Not on file Plan of Treatment Health Maintenance Due Date Last Done Comments DTaP,Tdap,and Td Vaccines (1 - Tdap) 02/23/1999 Hepatitis A Vaccines (1 of 2 - Risk 2-dose series) 02/23/1999 Hepatitis B Vaccines (1 of 3 - 19+ 3-dose series) 02/23/1999 Cholesterol Screening (Lipid Panel) 05/12/2024 Depression Screening 05/12/2024 HIV Screening 05/12/2024 Hepatitis C Screening 05/12/2024 Social Influencers of Health Screening 05/12/2024 COVID-19 Vaccine (2023-2 5 season) 2024 Influenza Vaccine (#1) 2024 HIB Vaccines Aged Out No longer eligi ble based on patient's age to complete this topic HPV Vaccines Aged Out No longer eligi ble based on patient's age to complete this topic IPV Vaccines Aged Out No longer eligi ble based on patient's age to complete this topic MMR Vaccines Aged Out No longer eligi ble based on patient's age to complete this topic Meningococcal ACWY Vaccine Aged Out N o longer eligible based on patient's age to complete this topic Pneumococcal Vaccine: Pediat rics (0 to 5 Years) and At-Risk Patients (6 to 64 Years) Aged Out No longer eligible b ased on patient's age to complete this topic RSV Immunization Patients Un cyndi 20 months Aged Out No longer eligible b ased on patient's age to complete this topic Varicella Vaccines Aged Out No longer eligible based on patient's age to complete this topic
--- OUTSIDE RECORDS SUMMARY | 2024-10-15 15:53 | XMS_ITS | Clinical Summary ---
Author Organization [facility] Address [address] [place] [address] Care Team Providers Care Sales Team Leader Name Role Phone Ramila Milton DMD Primary Care Provider Source Comments PLEASE NOTE, if this patient is a minor, it may be UNLAWFUL to discuss sensitive information that is contained in these records (such as FAMILY PLANNING, MENTAL HEALTH or SUBSTANCE ABUSE) with the minor patient's parent or other person without the patient's specific authorization.[facility] Medications ibuprofen (ADVIL,MOTRIN) 600 mg tabletIndication s:Pulpitis Take 1 Tab by mouth 4 (four) times daily as needed for pain 12 Tab 07/11/2017 Active Social History Tobacco Use Types Packs/Day Years Used Date Smoking Tobacco: Never Assessed Social Connections Answer Date Recorded Social Connections and Isolation 0 05/11/2019 Financial Resource Strain Answer Date R ecorded Financial Resource Strain 0 2018 Stress Answer Date Recorded Stress 0 05/11/2019 Physical Activity Answer Date Recorded Physical Activity 0 05/11/2019 Food Insecurity Answer Date Recorded Food 0 05/11/2019 Transportation Needs Answer Date Record ed Transportation 0 05/11/2019 Housing Stability Answer Date Recorded Housing 0 05/11/2019 Safety and Environment Answer Date Prieto rded Safety 0 05/11/2019 Utilities Answer Date Recorded Utilities 0 05/11/2019 Employment Answer Date Recorded Employment 0 05/11/2019 Sex and Gender Information Value Date Recorded Sex Assigned at Not on file Legal Sex Male 6:47 AM PST Gender Identity Not on file Sexual Orientation Not on file Plan of Treatment Not on file Insurance [facility] [facility] [id number] [place] DENT[place] Care Teams Sales Team Leader Relationship Specialty Start Date End Date Ramila Milton DMD [address] [place] [address] PCP - General 05/29/19
--- OUTSIDE RECORDS SUMMARY | 2024-10-15 15:53 | XMS_ITS | Clinical Summary ---
Author Organization [facility] Address [address] [place] [address] Care Team Providers Care Waiter/Waitress Bar Name Role Phone Jeevan Gagnon Primary Care Provider [phone] Allergies No known active allergies Medications Medication Sig Dispensed Refills Start Date End Date Status cephalexin (KEFLEX) 500 MG capsuleIndications:En cephalopathy acute Take 1 capsule (500 mg total) by mouth every 6 (six) hours around the clock. 25 capsule 09/22/2019 Active cloNIDine (CATAPRES) 0.1 MG tabletIndications:Enc ephalopathy acute Take 1 tablet (0.1 mg total) by mouth 2 (two) times a day. 60 tablet 09/22/2019 Active divalproex (DEPAKOTE SPRINKLE) 125 MG capsuleIndications:En cephalopathy acute Take 10 capsules (1,250 mg total) by mouth 2 (two) times a day. 600 capsule 09/22/2019 Active folic acid (FOLVITE) 1 MG tabletIndications:Enc ephalopathy acute Take 1 tablet (1 mg total) by mouth daily. 30 tablet 09/22/2019 Active multivitamin with minerals Tab tabletIndications:Enc ephalopathy acute Take 1 tablet by mouth daily. 30 tablet 09/22/2019 Active nicotine (NICODERM CQ) 21 MG/24HR patchIndications:Ence phalopathy acute Place 1 patch on the skin daily. 30 patch 09/22/2019 Active OLANZapine zydis (ZyPREXA ZYDIS) 5 MG disintegrating tabletIndications:Enc ephalopathy acute Take 1 tablet (5 mg total) by mouth daily. 30 tablet 09/22/2019 Active Active Problems Problem Noted Date Diagnosed Date Hepatitis C antibody positive in blood 9 Polysubstance abuse 08/27/2019 Encephalopathy acute 08/27/2019 Gram-positive bacteremia 08/26/2019 MRSA bacteremia 08/26/2019 Cellulitis 08/23/2019 Pleural effusion 08/23/2019 Overview (08/25/2019): Added automatically from request for surgery [id number] Empyema 08/23/2019 Overview (08/27/2019): Added automatically from request for surgery [id number] Social History Tobacco Use Types Packs/Day Years Used Date Smoking Tobacco: Every Day Cigarettes Tobacco Cessation:Ready to Q uit: No; Counseling Given: Yes Sex and Gender Information Value Date Recorded Sex Assigned at Not on file Gender Identity Not on file Sexual Orientation Not on file Last Filed Vital Signs Vital Sign Reading Time Taken Comments Blood Pressure 122/78 09/22/2019 6:12 AM EST Pulse 60 09/22/2019 6:12 AM EST Temperature 35.8 ??C (96.5 ??F) 09/22/2019 6:12 AM ES T Respiratory Rate 18 09/22/2019 6:12 AM EST Oxygen Saturation 100% 09/22/2019 6:12 AM EST Inhaled Oxygen Concentration - - Weight 111 kg (245 lb 4.8 oz) 09/17/2019 7:34 AM EST Height 190.5 cm (6' 3 ) 09/07/2019 12:00 AM EST Body Mass Index 30.66 09/07/2019 12:00 AM EST Plan of Treatment Health Maintenance Due Date Last Done Comments DTaP/Tdap/Td Vaccines (1 - Tdap) 02/23/1999 Hepatitis B Vaccines (1 of 3 - 19+ 3-dose series) 02/23/1999 Influenza Vaccine 04/17/2024 COVID-19 Vaccine (2023-25 season) 2024 Hepatitis C Virus Screening Completed 08/17, 08/31/2019, 08/31/2019, Additional history exists HIV Screening Completed 09/11/2019, 08/26/2019 HPV Vaccines Aged Out No longer eligi ble based on patient's age to complete this topic Pneumococcal Vaccine: Pediatric (0-5 Years) and At-Risk Patients (6 to 49 Years) Aged Out No longer eligible based on patient's age to complete this topic Procedures Procedure Name Priority Date/Time Associated Diagnosis Comments HIV 1/2 AG/AB CMIA REFLEX TO CONFIRMATION Routine 09/11/2019 1:41 PM EST HEPATITIS C VIRUS (HCV) RT-PCR QUANTITATIVE REFLEX GENOTYPE Routine 09/02/2019 11:49 AM EST from Last 3 Months or Most Recently Relevant to Health Maintenance Results * HIV 1/2 Ag/Ab CMIA Reflex to Confirmation (09/11/2019 1:41 PM EST) Pathologist [facility] HIV 1/2 Ag/Ab CMIA Nonreactive Nonreactive HOSPITAL [facility] Comment: Results show no evidence of infection by HIV 1/2. If clinically indicated, repeat CMIA or test by nucleic acid amplification. [facility] [place] License 0385 ??CLIA [id number] Blood specimen (specimen) Blood specimen / Unknown 09/11/2019 1:41 PM EST 09/11/2019 2:12 PM EST Violetta Pickett MD [facility]OD [facility] * (ABNORMAL) Hepatitis C Virus (HCV) RT-PCR Quantitative reflex Genotype (09/02/2019 11:49 AM EST) Pathologist [facility] HCV RNA (IU/mL) 52(H) <12 IU/mL [facility]OSPITAL [facility] HCV RNA (log10) 1.72(H) <1.08 log10 IU/mL [facility] Interpretation Detected HOSPITAL [facility] Comment: Performed by FDA approved Rayo m2000 quantitative RT-PCR test. Linear range 12-100,000,000 IU/mL. HCV genotyping is not recommended for viral loads below 500 IU/mL. ? [facility] [place] License 0385 ??CLIA [id number] Blood specimen (specimen) Blood specimen / Unknown 09/02/2019 11:49 AM EST 09/02/2019 12:24 PM EST Ellie Beal MD LAB BLOOD ORDERABL [facility] from Last 3 Months or Most Recently Relevant to Health Maintenance Advance Directives * Full Code (Latest Code Status on File) Date Activated Date Inactivated Comments 09/02/2019 7:25 AM * Full Code Date Activated Date Inactivated Comments 08/23/2019 5:06 AM 09/02/2019 7:25 AM Healthcare Agents on File Name Relationship Healthcare Agent Relationshi p Communication Marbella Otero Spouse 4. Next of Kin ( Spouse, Adult Child, Parent, Adult Sibling, Grandparent) Care Teams Waiter/Waitress Bar Relationship Specialty Start Date End Date Jeevan Gagnon [facility] [address] [place] [address] PCP - General
== END 2024-10-15 14:19 | disposition home or self-care (01) ==
PROVIDERS: PCP Nurse Practitioner Family; Visit Provider Nurse Practitioner Family
DX: Z00.00 Encounter for general adult medical examination without abnormal findings (principal); R68.82 Decreased libido; Z12.5 Encounter for screening for malignant neoplasm of prostate

== ENCOUNTER → 2024-10-15 13:39 | Outpatient (BNVA) | payer OTHER, SELFPAY | PROVIDERS: PCP Nurse Practitioner Family; Visit Provider Nurse Practitioner Family | DX: Z00.00 Encounter for general adult medical examination without abnormal findings (principal); F90.9 Attention-deficit hyperactivity disorder, unspecified type; R68.82 Decreased libido; Z12.5 Encounter for screening for malignant neoplasm of prostate | CPT/HCPCS: 96127; 99396 ==

== ENCOUNTER 2024-11-19 08:12 | Outpatient (REF) | payer OTHER, SELFPAY ==
--- OUTSIDE RECORDS SUMMARY | 2024-11-19 08:27 | XMS_ITS | Clinical Summary ---
Author Organization [facility] Address [address] [place] [address] Care Team Providers Care Senior Program Analyst Name Role Phone Jeevan Gagnon Primary Care Provider [phone] Allergies No known active allergies Medications Medication [...] (08/25/2019): Added automatically from request for surgery [id number] Empyema 08/23/2019 Overview (08/27/2019): Added automatically from request for surgery [id number] Social History Tobacco Use Types Packs/Day Years [...] to Confirmation (09/11/2019 1:41 PM EST) Pathologist [facility] HIV 1/2 Ag/Ab CMIA Nonreactive Nonreactive [facility]OSPITAL [facility] Comment: Results show no evidence of infection by HIV 1/2. If clinically indicated, repeat CMIA or test by nucleic acid amplification. [facility] [place] License 0385 ??CLIA [id number] Blood specimen (specimen) Blood specimen / Unknown 09/11/2019 1:41 PM EST 09/11/2019 2:12 PM EST Violetta Pickett [place] LAB BLOOD [facility] * (ABNORMAL) Hepatitis C Virus (HCV) RT-PCR Quantitative reflex Genotype (09/02/2019 11:49 AM EST) Pathologist [facility] HCV RNA (IU/mL) 52(H) <12 IU/mL [facility] HCV RNA (log10) 1.72(H) <1.08 log10 IU/mL [facility] Interpretation Detected [facility] Comment: Performed by FDA approved Rayo m2000 quantitative RT-PCR test. Linear range 12-100,000,000 IU/mL. HCV genotyping is not recommended for viral loads below 500 IU/mL. ? [facility] [place] [place] License 0385 ??CLIA [id number] Blood specimen (specimen) Blood specimen / Unknown [...] Child, Parent, Adult Sibling, Grandparent) Care Teams Senior Program Analyst Relationship Specialty Start Date End Date Jeevan Gagnon [facility] [address] [place] [address] PCP - General
--- OUTSIDE RECORDS SUMMARY | 2024-11-19 08:27 | XMS_ITS | Clinical Summary ---
Author Organization [facility] Address [address] [place] [address] Care Team Providers Care Art Historian Name Role Phone Unavailable Primary Care Provider Unavailabl e Social History Tobacco Use Types Packs/Day Years Used Date Smoking Tobacco: Never Assessed Sex and Gender Information Value Date Recorded Sex Assigned at Not on file Legal Sex Male 3:31 PM EST Gender Identity Not on file Sexual Orientation [...] Influencers of Health Screening 05/12/2024 COVID-19 Vaccine ( - 2023-2 5 season) 2024 Influenza Vaccine (#1) 2024 [...] patient's age to complete this topic Meningococcal B Vacine Aged Out No lo nger eligible based on patient's age to complete [...]
--- OUTSIDE RECORDS SUMMARY | 2024-11-19 08:27 | XMS_ITS | Clinical Summary ---
Author Organization [facility] Address [address] [place] [address] Care Team Providers Care Mud Mill Tender Name Role Phone Ramila Milton DMD Primary Care Provider [phone] Source Comments PLEASE NOTE, if this patient [...] needed for pain 12 Tab 07/11/2017 Active Encounters Date Type Department Care Team Description 10/24/2024 Dental Interim Note [facility] [address] [place] [id number] Sai Singh DDS from Last 3 Months Social History Tobacco Use Types Packs/Day Years [...] Health Maintenance Due Date Last Done Comments Diabetes Screening 1980 Hepatitis C Screening 1980 Lipid Screening 1980 Tobacco Screening 1980 HIV Screening 02/23/1995 Hypertension Screening (#1) 02/23/1998 Imm-DTaP/Tdap/Td (1 - Tdap) 02/23/1999 Imm-Hepatitis B (1 of 3 - 19+ 3-dose series) 9 [id number] (1 - 2023-25 season) 2024 Imm-Influenza (#1) 2024 Alcohol and Drug Screen 09/17/2024 Depression Annual Screen 09/17/2024 Insurance HEALTH SAFETY NET DENTAL MEDICAID DENTAL Care Teams Mud Mill Tender Relationship Specialty Start Date End Date Ramila Milton DMD [address] [place] [address] PCP - General 05/29/19
--- OUTSIDE RECORDS SUMMARY | 2024-11-19 08:27 | XMS_ITS | Encounter Summary ---
Author Organization [facility] Address [address] [place] [address] Care Team Providers Care Curator Of Collections Name Role Phone YoanRamila REINALDO Primary Care Provider [phone] Encounter Details Date Type Department Care Team (Late st Contact Info) Description 10/24/2024 Dental Interim Note [facility] [address] [place] [phone] Sai Singh DDS [address] [place], [place] [id number] Social History Tobacco Use Types Packs/Day Years [...] on file Legal Sex Male 6:47 AM [facility] Gender Identity Not on file Sexual Orientation Not on file documented as of this encounter Plan of Treatment Not on file documented as of this encounter Visit Diagnoses Not on filedocumented in this encounter Care Teams Curator Of Collections Relationship Specialty Start Date End Date Ramila Mitlon DMD [address] [place], [place] [id number] PCP - General 05/29/19 documented as of this encounter
[2024-11-19 10:13] LABS: Appearance Urine Cloudy; Color Urine Yellow; Glucose Urine UA Negative (Negative); Leukocyte Esterase Urine Negative (Negative); Nitrite Urine Negative (Negative); PH 5.5 (5.0-9.0); Urine Blood Negative (Negative); Urine Ketones Negative (Negative); Urine Protein Negative (Neg-Trace)
[2024-11-19 10:25] LABS: MANUAL DIFF FLAG NO
[2024-11-19 10:37] LABS: Basophils Percent Auto 0.4 % (0-2); Eosinophils Absolute Auto 0.3 X10*3/uL (0.0-0.4); Eosinophils Percent Auto 3.6 % (0-4); Hematocrit 38.9 % (42.0-52.0); Imm Gran Abs Auto 0.05 X10*3/uL (0.00-0.03); Imm Gran Pct Auto 0.7 % (0.0-0.4); Lymphocytes Absolute Auto 2.9 X10*3/uL (1.2-4.9); Lymphocytes Percent Auto 41.4 % (20-40); Mean Corpuscular HGB Conc 33.4 g/dl (31.0-36.0); Mean Corpuscular Volume 83.7 fL (80.0-98.0); Monocytes Absolute Auto 0.6 X10*3/uL (0.1-1.2); Monocytes Percent Auto 8.9 % (2-11); Neutrophils Absolute Auto 3.1 x10*3/uL (2.0-8.3); Platelet Count 200 X10*3/uL (160-400); Red Blood Count 4.65 X10*6/uL (4.60-5.80); Red Cell Distribution Width 12.9 % (11.0-16.0); White Blood Count 6.9 X10*3/uL (4.8-10.8)
[2024-11-19 11:11] LABS: Alanine Aminotransferase 32 U/L (0-40); Albumin Level 3.8 g/dL (3.5-5.0); Alkaline Phosphatase 117 U/L (39-117); Anion Gap 10 (12-20); Aspartate Amino Transferase 24 U/L (5-37); Bilirubin Total 0.3 mg/dL (0.0-1.0); Blood Urea Nitrogen 14 mg/dL (9-16); Carbon Dioxide 26 mmol/L (22-29); Chloride 108 mmol/L (96-108); Cholesterol 174 mg/dL (<200); Estimated Glomerular Filt Rate > 60; Glucose Fasting 121 mg/dL (60-99); HDL Cholesterol 33 mg/dL (>40); LDL Cholesterol Calculated 67 mg/dL (<100); Potassium 4.1 mmol/L (3.3-5.1); Sodium 140 mmol/L (135-145); Triglycerides 370 mg/dL (<150)
[2024-11-19 11:31] LABS: TSH reflex Free T4 2.37 uIU/mL (0.32-4.0)
[2024-11-19 11:40] LABS: Prostate Specific Antigen Scr 0.27 ng/mL (<0.05-4.0)
[2024-11-28 06:33] LABS: Testosterone, Free 22.1 pg/mL (35.0-155.0); Testosterone, Total 113 ng/dL (250-1100)
== END 2024-11-19 08:13 | disposition home or self-care (01) ==
LOC: HO.HMGCLDS 08:12
PROVIDERS: PCP Nurse Practitioner Family; Visit Provider Nurse Practitioner Family
DX: Z00.00 Encounter for general adult medical examination without abnormal findings (principal); Z12.5 Encounter for screening for malignant neoplasm of prostate; R68.82 Decreased libido
CPT/HCPCS: 36415; 80053; 80061; 81003; 84153; 84402; 84403; 84443; 85025

== ENCOUNTER 2025-01-28 08:07 | Outpatient (AMB) | payer OTHER, SELFPAY ==
--- NOTE | 2025-01-28 08:08 | MHC.OFFVIS ---
Intake Visit Reasons: Low testosterone, decreased Libido Intake Note: Pt presents to the office today for low testosterone and decreased libido. Urology Meds:none Allergies:none Allergies No Known Allergies [No Known Allergies*] Allergy (Verified 01/28/25 08:21) Medication List - Last Reconciled 01/28/25 by SANDRA Lorenzo bupropion HCl XL 300 mg PO DAILY gabapentin 800 mg PO BID pantoprazole 20 mg PO DAILY 30 days quetiapine 100 mg PO BEDTIME sertraline (Zoloft) 100 mg PO DAILY HPI Comments Details: Austin is a 44-year-old male patient of Dr. Roman. He has a past medical history of heroin use, severe depression, ETOH abuse, cocaine disorder, stimulant use disorder, hep C, low-back pain, and attention deficit disorder. He presents to the office today as a new patient for hypogonadism. In discussion with the patient today he reports having followed up with his PCP in discussing ongoing issues with lack of libido and overall fatigue. At which time his testosterone labs were ordered and performed and patient was noted to have low testosterone and recommendations were made for urology referral for further assessment evaluation. He does report having been on AndroGel therapy 8 years ago however does not recall as to why this was discontinued. He discusses at length his recovery with substance abuse. He discusses his relapse last weekend. He also reports previously being on methadone however has since weaned himself off. He otherwise denies any bothersome urinary issues. He denies urinary urgency, urinary frequency, incontinence, nocturia, hematuria, dysuria, foul smelling urine, changes to urinary stream, flank pain, fever, and or chills. He is happy with his current voiding parameters. In office urinalysis results reviewed with the patient today. Testosterone: 12/09 113 Free testosterone: 12/09 22.1 We discussed at length potential causes of hypogonadism, lack of libido, and overall fatigue. We did discussed further treatment options and risks and benefits of these treatment options. We discussed assessment of LH, SHBG, FSH, estradiol, and prolactin for further assessment evaluation. All questions were answered. When asked he denies wanting to procreate/ fertility. History of Present Illness The patient is a 44-year-old male presenting with concerns regarding low testosterone levels. Over the past three years, he reports a significant reduction in libido, affecting his relationship with his firichmond who perceives a lack of interest in intimacy. The patient recently experienced a relapse in substance use after maintaining a year and a half of sobriety, primarily involving alcohol and cocaine, and recognizes this setback was self-induced. He has a longstanding history of substance use, managed with Suboxone in the past, and reports previous use of Androgel for testosterone replacement which he discontinued. He also notes the adverse impact of sertraline on his sexual performance. His upcoming travel to a family event has heightened his desire for treatment to improve his current status. Plan The current therapeutic approach involves beginning testosterone therapy to address his low testosterone levels, with two to three pumps daily, adjusting based on subsequent blood work. We considered symptomatic treatment with Cialis for improving erectile function. Blood work will help determine the underlying cause of low testosterone, influencing whether Clomid could be an appropriate future therapy. The patient's history of substance use influenced the choice of topical androgen replacement over injectable forms, aligning with his preference and clinical safety. Follow-up testosterone levels are scheduled in three months to monitor the treatment response. Patient was informed and verbally consented to the use of an ambient scribe for clinic note documentation during this visit. Discussion Notes During the discussion, I outlined the therapeutic options for managing low testosterone, explaining the benefits and considerations of each, particularly Androgel given his past experience and recent therapeutic needs. We discussed the potential of using Clomid, which would be contingent upon further lab values and potential stim testing. I assured him that blood work would gauge the need for further intervention. The prescription for Cialis addressed immediate concerns related to erectile function. I emphasized the importance of sobriety for overall hormonal balance and long-term well-being and confirmed his consent to begin Androgel therapy. [facility] Medical History Heroin use Severe depression ETOH abuse Cocaine use disorder Stimulant use disorder Hepatitis C antibody positive in blood Lower back pain Suicidal behavior with attempted self-injury ADD (attention deficit disorder) Surgical History History of appendectomy Family History Father No problems noted. Mother No problems noted. Social History Housing: House Patient Tobacco Use Status: Current everyday Tobacco user Cigarettes Per Day: 5 Years Smoked: 25 e-Cigarette/Vaping Use: Currently Using Second Hand Smoke Exposure: No service: No Current occupational status: employed Current occupation: [employer] Current occupational exposures/hazards: No Cognitive needs: No Hearing needs: No Vision needs: No Review of Systems Const All systems reviewed & are unremarkable except as noted in HPI and below Physical Exam Const General: cooperative, healthy appearing, comfortable, no acute distress, well developed, alert and awake Orientation/consciousness: patient oriented x3 Limitations: no limitations HEENT Head: Yes normal to inspection, Yes normocephalic and Yes atraumatic Ears: hearing grossly normal bilaterally Eyes General: appearance normal, both eyes and all related structures Neck Neck: Yes normal visual inspection and Yes trachea midline Chest Chest palpation & inspection: normal inspection of the chest Resp Effort & Inspection: normal respiratory effort and able to speak in complete sentences Cardio Rate: regular rate GI Inspection: Yes normal to inspection General: Yes no CVA tenderness Back/Spine/Pelvis Back: no CVA tenderness Skin General skin exam: no rashes or lesions noted Neuro General: patient oriented x3 Extrem General: Yes normal to inspection Psych Appearance: grossly normal and well kempt Mental Status: mental status grossly normal Speech and movement: Normal speech and movement present and Clear speech present Affect: normal affect Attitude: cooperative Thought process: Normal thought process present Thought content: Normal thought content present Insight: Fair insight present (Psych) Judgement: Fair judgement present (Psych) Results AMB Urinalysis, Automated UA Leukoctes 0 Jazmin/uL Last Edit by Radha Santiago CMA on 01/28/25 08:23 UA Nitrite Negative Last Edit by Radha Santiago CMA on 01/28/25 08:23 UA Urobilinogen 0.2 mg/dL Last Edit by Radha Santiago CMA on 01/28/25 08:23 UA Protein 0 mg/dL Last Edit by Radha Santiago CMA on 01/28/25 08:23 UA pH 6.5 Last Edit by Radha Santiago CMA on 01/28/25 08:23 UA Blood 0 Kg/uL Last Edit by Radha Santiago CMA on 01/28/25 08:23 UA Specific [place] [facility] 1.015 Last Edit by Radha Santiago CMA on 01/28/25 08:23 UA Ketone Negative Last Edit by Radha Santiago CMA on 01/28/25 08:23 UA Bilirubin 0 mg/dL Last Edit by Radha Santiago CMA on 01/28/25 08:23 UA Glucose 0 mg/dL Last Edit by Radha Santiago CMA on 01/28/25 08:23 Results Reviewed Results Reviewed: Laboratory Last Values Urine pH (Auto) 6.5 01/28/25 08:22 Specific [facility] (Auto) 1.015 01/28/25 08:22 Urine Protein (Auto) 0 mg/dL 01/28/25 08:22 Glucose (UA)(Auto) 0 mg/dL 01/28/25 08:22 Urine Ketones (Auto) Negative 01/28/25 08:22 Urine Blood (Auto) 0 Kg/uL 01/28/25 08:22 Urine Nitrite (Auto) Negative 01/28/25 08:22 Urine Bilirubin (Auto) 0 mg/dL 01/28/25 08:22 Urine Urobilinogen (Auto) 0.2 mg/dL 01/28/25 08:22 Leukocyte Esterase (Auto) 0 Jazmin/uL 01/28/25 08:22 Assessment & Plan Assessment & Plan (1) Low testosterone in male: Code(s): R79.89 - Other specified abnormal findings of blood chemistry Category: Medical (2) Decreased sex drive: Code(s): R68.82 - Decreased libido Category: Medical (3) Fatigue: Code(s): R53.83 - Other fatigue Category: Medical (4) Hypogonadism in male: Code(s): E29.1 - Testicular hypofunction Category: Medical Plan In office urinalysis results reviewed with the patient today; as noted above. Recent labs were reviewed with the patient today; as noted above. We discussed potential causes of hypogonadism as well as further treatment options and risks and benefits of these treatment options. He currently denies any bothersome urinary issues. He reports be happy with current voiding parameters. We discussed importance of sobriety. Start AndroGel. Prescription provided for jay Candelaria Will obtain LH, SHBG, FSH, estradiol, and prolactin for further assessment evaluation. Will obtain CBC, PSA, and testosterone free and total in 3 months. Follow-up in 3 months with labs to be completed prior; or sooner with any issues, concerns, and or questions. Orders: Orders Prostate Specific Antigen 3 Months E29.1 - Testicular hypofunction Lutenizing Hormone Today E29.1 - Testicular hypofunction Estradiol Ultra Sensitive Today E29.1 - Testicular hypofunction Follicle Stimulating Hormone Today E29.1 - Testicular hypofunction AMB Urinalysis Automated Today Z13.9 - Encounter for screening, unspecified Prolactin Today E29.1 - Testicular hypofunction Testosterone, Free/Total 3 Months E29.1 - Testicular hypofunction Complete Blood Count no Diff 3 Months E29.1 - Testicular hypofunction Sex Hormone Binding Globulin Today E29.1 - Testicular hypofunction Medications: New testosterone apply 2 pumps over max area - alternate shoulders on alternate days 2 pumps topical DAILY 30 days 75 grams 3RF E29.1 - Testicular hypofunction, R79.89 - Other specified abnormal findings of blood chemistry tadalafil (Cialis) administer approximately 30min before sexual activity; do not use more than 1 dose per 24hrs [id number] [facility] [id number] Member [id number] 20 mg PO .PRN 30 days PRN 10 tabs 3RF sexual activity Patient Instructions: The patient had an opportunity to ask questions regarding the treatment plan. All questions were answered. Physical exam, labs, and imaging were discussed and reviewed in detail. As well as risks, benefits, and discussion of treatment choices. No major barriers to understanding were identified. The patient expressed understanding and agreement with the above treatment plan. The patient was made aware they should contact our office by phone for worsening of their current condition, the appearance of new symptoms, or with any questions or concerns. Compliance is encouraged with any medications and follow up testing that is ordered. It is a privilege to be allowed the opportunity to participate in? your urological care.? Again, if you have any questions or concerns If you have any questions or concerns please do not hesitate to contact me. The office is [phone]. This note is constructed using voice recognition software. While every effort has been made to ensure accuracy forging machine hand errors may have been included. Yours sincerely, SANDRA Lorenzo Coding Level of Care Code New Pt Level 4 (46912) Diagnoses Low testosterone in male R79.89 Decreased sex drive R68.82 Fatigue R53.83 Hypogonadism in male E29.1
--- OUTSIDE RECORDS SUMMARY | 2025-01-28 08:11 | XMS_ITS | Clinical Summary ---
Author Organization [facility] Address [address] [place] [address] Care Team Providers Care Rangelands Conservation Laborer Name Role Phone Jeevan Gagnon Primary Care Provider [phone] Allergies No known active allergies Medications cephalexin (KEFLEX) 500 MG capsuleIndications: Encephalopathy acute Take 1 capsule (500 mg total) by mouth every 6 (six) hours around the clock. 25 capsule 0 Active cloNIDine (CATAPRES) 0.1 MG tabletIndications:E ncephalopathy acute Take 1 tablet (0.1 mg total) by mouth 2 (two) times a day. 60 tablet 0 Active divalproex (DEPAKOTE SPRINKLE) 125 MG capsuleIndications: Encephalopathy acute Take 10 capsules (1,250 mg total) by mouth 2 (two) times a day. 600 capsule 0 Active folic acid (FOLVITE) 1 MG tabletIndications:E ncephalopathy acute Take 1 tablet (1 mg total) by mouth daily. 30 tablet 0 Active multivitamin with minerals Tab tabletIndications:E ncephalopathy acute Take 1 tablet by mouth daily. 30 tablet 0 Active nicotine (NICODERM CQ) 21 MG/24HR patchIndications:En cephalopathy acute Place 1 patch on the skin daily. 30 patch 0 Active OLANZapine zydis (ZyPREXA ZYDIS) 5 MG disintegrating tabletIndications:E ncephalopathy acute Take 1 tablet (5 mg total) by mouth daily. 30 tablet 0 Active Active Problems Problem Noted Date Diagnosed Date Hepatitis C antibody positive in blood 9 Polysubstance abuse 08/27/2019 Encephalopathy acute 08/27/2019 Gram-positive bacteremia 08/26/2019 MRSA bacteremia 08/26/2019 Cellulitis 08/23/2019 Pleural effusion 08/23/2019 Overview (08/25/2019): Added automatically from request for surgery [id number] Empyema 08/23/2019 Overview (08/27/2019): Added automatically from request for surgery [id number] Social History Tobacco Use Types Packs/Day Years Used Date Smoking Tobacco: Every Day Cigarettes Tobacco Cessation:Ready to Q uit: No; Counseling Given: Yes Sex and Gender Information Value Date Recorded Sex Assigned at Not on file Legal Sex Male 7:09 PM EST Gender Identity Not on file [...] of 3 - 19+ 3-dose series) 02/23/1999 COVID-19 Vaccine ( - 2023- season) 2024 Influenza Vaccine 04/17/2025 Hepatitis C Virus Screening Completed 08/17, 08/31/2019, [...] Reflex to Confirmation (09/11/2019 1:41 PM EST) HIV 1/2 Ag/Ab CMIA Nonreactive Nonreactive [facility] Comment: Results show no evidence of infection by HIV 1/2. If clinically indicated, repeat CMIA or test by nucleic acid amplification. [facility] [place] License [id number] ??CLIA [id number] Blood specimen (specimen) Blood specimen / Unknown 09/11/2019 1:41 PM EST 09/11/2019 2:12 PM EST Violetta Pickett PA LAB BLOOD ORDERABLES Roula gant Result [facility] * (ABNORMAL) Hepatitis C Virus (HCV) RT-PCR Quantitative reflex Genotype (09/02/2019 11:49 AM EST) HCV RNA (IU/mL) 52(H) <12 IU/mL [facility] HCV RNA (log10) 1.72(H) <1.08 log10 IU/mL [facility] Interpretation Detected [facility] Comment: Performed by FDA approved Rayo m2000 quantitative RT-PCR test. Linear range 12-100,000,000 IU/mL. HCV genotyping is not recommended for viral loads below 500 IU/mL. ? Performed at [facility] [place] License [id number] ??CLIA [id number] Blood specimen (specimen) Blood specimen / Unknown 09/02/2019 11:49 AM EST 09/02/2019 12:24 PM EST us Ellie Beal MD LAB BLOOD ORDERABLES Final Result [facility] from Last 3 Months or Most Recently Relevant to Health Maintenance Insurance [facility] Advance Directives * Full Code (Latest Code Status on File) Date Activated Date Inactivated Comments 09/02/2019 7:25 AM * Full Code Date Activated Date Inactivated Comments 08/23/2019 5:06 AM 09/02/2019 7:25 AM Care Teams Rangelands Conservation Laborer Relationship Specialty Start Date End Date Jeevan Gagnon [address] [place] [address] PCP - General
--- OUTSIDE RECORDS SUMMARY | 2025-01-28 08:11 | XMS_ITS | Clinical Summary ---
Author Organization [facility] Address [address] [place] [address] Care Team Providers Care High School Music Teacher Name Role Phone Unavailable Primary Care Provider [...] - 2023-2 5 season) 2024 Influenza Vaccine (Season Ended) 2025 HIB Vaccines Aged Out No longer eligi [...] age to complete this topic Meningococcal B Vaccine Aged Out No l onger eligible based on patient's age to complete [...]
--- OUTSIDE RECORDS SUMMARY | 2025-01-28 08:11 | XMS_ITS | Encounter Summary ---
Author Organization [facility] Address [address] [place] [address] Care Team Providers Care Vegetable Washing Machine Operator Name Role Phone Ramila Milton DMD Primary Care Provider [phone] Encounter Details Date Type Department Care Team (Late Contact Info) Description 10/24/2024 Dental Interim Note [facility] [address] [place] [phone] Sai Singh DDS [address] [place], [place] [phone] Social History Tobacco Use Types Packs/Day Years [...] as of this encounter Plan of Treatment Upcoming Encounters Date Type Department Care Team (Late Contact Info) Description 03/04/2025 4:00 PM EDT Office Visit [facility] [address] [place] [address] Misty Russo [address] [place] [address] documented as of this encounter Visit Diagnoses Not on filedocumented in this encounter Care Teams Vegetable Washing Machine Operator Relationship Specialty Start Date End Date Ramila Milton DMD [address] [place] [address] PCP - General 05/29/19 documented as of this encounter
--- OUTSIDE RECORDS SUMMARY | 2025-01-28 08:11 | XMS_ITS | Clinical Summary ---
Author Organization [facility] Address [address] [place] [address] Care Team Providers Care Computer Education Professor Name Role Phone Ramila Milton DMD Primary [...] Orientation Not on file Plan of Treatment Upcoming Encounters Date Type Department Care Team ([facility] st Contact Info) Description 03/04/2025 4:00 PM EDT Office Visit [facility] [address] [place] [address] Misty Russo [address] [place] [address] Health Maintenance Due Date Last Done Comments Anxiety Screening 1980 Diabetes Screening 1980 Hepatitis C Screening 1980 Lipid Screening 1980 Tobacco Screening 1980 HIV Screening 02/23/1995 Hypertension Screening (#1) 02/23/1998 Imm-DTaP/Tdap/Td (1 - Tdap) 02/23/1999 Imm-Hepatitis B (1 of 3 - 19+ 3-dose series) 9 [id number] ( - 2023- season) 2024 Imm-Influenza (#1) 2024 Alcohol and Drug Screen 09/17/2024 Depression Annual Screen 09/17/2024 Insurance [employer] [place] [address] [place] [phone] Care Teams Computer Education Professor Relationship Specialty Start Date End Date Ramila Milton DMD [address] [place] [address] PCP - General 05/29/19
== END 2025-01-28 08:40 | disposition home or self-care (01) ==
LOC: HO.HUSH 08:08
PROVIDERS: PCP Nurse Practitioner Family; Visit Provider Nurse Practitioner Family
DX: R79.89 Other specified abnormal findings of blood chemistry (principal); R68.82 Decreased libido; R53.83 Other fatigue; E29.1 Testicular hypofunction; Z13.9 Encounter for screening, unspecified
CPT/HCPCS: 99204

== ENCOUNTER → 2025-01-28 08:07 | Outpatient (BNVA) | payer OTHER, SELFPAY | PROVIDERS: PCP Nurse Practitioner Family; Visit Provider Nurse Practitioner Family | DX: E29.1 Testicular hypofunction (principal); R79.89 Other specified abnormal findings of blood chemistry; R68.82 Decreased libido; R53.83 Other fatigue | CPT/HCPCS: 81003; 99202 ==